=== PATIENT | male | born 1960 | race Caucasian/White ===

== ENCOUNTER → 2023-04-20 19:23 | Outpatient (REF) | payer OTHER, SELFPAY | LOC: MRI 19:23 | PROVIDERS: ATTENDING PHYSICIAN Student in an Organized Health Care Education/Training Program; FAMILY PHYSICIAN Physician Assistant Medical | DX: M48.062 Spinal stenosis, lumbar region with neurogenic claudication (principal); M54.50 Low back pain, unspecified; M43.16 Spondylolisthesis, lumbar region | CPT/HCPCS: 72148 ==

== ENCOUNTER 2024-02-06 06:23 | Day surgery (SDC) | payer OTHER, SELFPAY ==
[2024-02-06 07:12] LABS: Glucose - Point of Care 116 mg/dl (70-99)
== END 2024-02-06 09:23 | disposition home or self-care (01) ==
LOC: GI 06:23
PROVIDERS: ATTENDING PHYSICIAN Internal Medicine Gastroenterology
DX: Z12.11 Encounter for screening for malignant neoplasm of colon (principal); Z86.0100 Personal history of colon polyps, unspecified; K62.5 Hemorrhage of anus and rectum; K64.0 First degree hemorrhoids; K57.30 Diverticulosis of large intestine without perforation or abscess without bleeding; D12.2 Benign neoplasm of ascending colon; D12.3 Benign neoplasm of transverse colon; K63.5 Polyp of colon
CPT/HCPCS: 45385; 45380; 88305; 82962

== ENCOUNTER → 2025-03-09 13:44 | Outpatient (REF) | payer MEDICARE, OTHER, SELFPAY | LOC: RAD 13:44 | PROVIDERS: ATTENDING PHYSICIAN Physician Assistant Medical | DX: R22.1 Localized swelling, mass and lump, neck (principal); R07.89 Other chest pain; M89.9 Disorder of bone, unspecified | CPT/HCPCS: 71101; 76536 ==